=== PATIENT | male | born 1955 ===

== ENCOUNTER 2021-06-19 14:56 | Emergency (ER) | payer OTHER ==
[~2021-06-19] VITALS: Ht 180.3 cm; Wt 74.8 kg
[~2021-06-19 14:56] MED LIST: CHLO25 PO
[2021-06-19] MEDS ORDERED: BENZ100A PO (15:35)
[2021-06-19] MEDS ORDERED: ONDA4ODT MM (15:35)
== END 2021-06-19 15:48 | disposition home or self-care (01) ==
LOC: ER 14:56
DX: U07.1 COVID-19 (principal); F17.200 Nicotine dependence, unspecified, uncomplicated
CPT/HCPCS: 99283-25